=== PATIENT | female | born 1980 | race Caucasian/White ===

== ENCOUNTER → 2017-07-06 | Outpatient (CLI) | payer BC | END | disposition home or self-care (01) | LOC: LABWHC1 12:08 | PROVIDERS: ATTEND Obstetrics & Gynecology | DX: R23.2 Flushing (principal) | CPT/HCPCS: 36415; 82670; 83001; 83002 ==

== ENCOUNTER → 2019-03-04 | Outpatient (CLI) | payer BC ==
--- NOTE | 2019-03-07 08:30 | US ---
EXAMINATION TYPE: US pelvis complete transvag DATE OF EXAM: 03/05/2019 COMPARISON: NONE CLINICAL HISTORY: R10.2 PELVIC PAIN,N83.0 OVARIAN CYST LT. TECHNIQUE: Transabdominal and transvaginal sonographic images of the pelvis were acquired. EXAM MEASUREMENTS: Uterus: Surgically absent cm Endometrial Stripe: Surgically absent cm Right Ovary: 1.8 x 1.1 x 1.2 cm Left Ovary: 4.8 x 4.4 x 4.7 cm 1. Uterus: Surgically absent 2. Endometrium: Surgically absent 3. Right Ovary: Cystic area in the right ovary measures 2.4 x 1.8 x 2.1 cm. 4. Left Ovary: There is a hypoechoic lesion measuring 4.6 x 2.9 x 3.1 cm. This has low level homogen eous internal echoes as demonstrated on the first series image . This may represent a hemorrhagi c cyst or endometrioma. This is avascular. Spectral, color and waveform doppler imaging shows good arterial and venous flow within the ovaries ; there is no evidence for ovarian torsion. 5. Bilateral Adnexa: As described above 6. Posterior cul-de-sac: wnl IMPRESSION: 1. Complex left ovarian lesion measuring 4.6 cm. This may represent an endometrioma or hemorrhagic cy st. Follow-up could be performed in 3 months to ensure resolution. If not resolved endometrioma would be considered more likely. 2. Simple appearing 2.4 cm right ovarian cyst.
== END | disposition home or self-care (01) ==
LOC: RADUSWWP 16:14
PROVIDERS: ATTEND Obstetrics & Gynecology
DX: N83.201 Unspecified ovarian cyst, right side (principal); N83.8 Other noninflammatory disorders of ovary, fallopian tube and broad ligament
CPT/HCPCS: 76830; 76856

== ENCOUNTER → 2019-05-12 | Outpatient (CLI) | payer BC ==
--- NOTE | 2019-05-12 14:01 | US ---
EXAMINATION TYPE: US pelvic complete DATE OF EXAM: 05/12/2019 COMPARISON: 03/04/2019 CLINICAL HISTORY: 38-year-old female N83.0 Ovarian Cyst. Follow up ovarian cyst, intermittent left pe lvic pain, 1, para 1, hysterectomy 2016 TECHNIQUE: Transabdominal sonographic images of the pelvis were acquired. Transvaginal sonographic images were medically necessary to better assess the following anatomy: ovaries Date of LMP: 2015 FINDINGS: EXAM MEASUREMENTS: Uterus: Surgically absent. Right Ovary: not seen Left Ovary: 5.4 x 3.5 x 5.7 cm 1. Uterus: surgically absent 2. Endometrium: surgically absent 3. Right Ovary: not seen 4. Left Ovary: 4.0 x 2.5 x 3.0cm cystic area with internal echoes. There is also a 1.8 x 1.8 x 1.4cm hypoechoic area with echogenic rim, possible corpus luteum. Additional follicular changes present. 5. Bilateral Adnexa: wnl 6. Posterior cul-de-sac: wnl IMPRESSION: 1. Status post hysterectomy. 2. Right ovary could not be visualized. 3. Large volume to the left ovary secondary to a large 4.0 cm cystic lesion as well as additional fol licular change. The dominant lesion previously measured up to 4.6 cm. Additional follow-up in 6-8 wee ks to ensure gradual involution.
== END | disposition home or self-care (01) ==
LOC: RADUSWWP 10:55
PROVIDERS: ATTEND Obstetrics & Gynecology
DX: N83.01 Follicular cyst of right ovary (principal); N83.02 Follicular cyst of left ovary; Z90.710 Acquired absence of both cervix and uterus
CPT/HCPCS: 76830; 76856

== ENCOUNTER → 2019-07-01 | Outpatient (CLI) | payer BC ==
--- NOTE | 2019-07-01 18:22 | US ---
EXAMINATION TYPE: US pelvis complete transvag DATE OF EXAM: 07/01/2019 COMPARISON: Ultrasound 05/12/2019 CLINICAL HISTORY: R10.32 LLQ PAIN,N83.292 OVARIAN CYST. Pelvic pain x 1 week. Hx left ovarian cyst. P artial hysterectomy 3.5 years ago. TECHNIQUE: Transvaginal (TV) and Transabdominal (TA) . Transabdominal sonographic images of the pel vis were acquired. Transvaginal sonographic images were medically necessary to better assess the fol lowing anatomy: ovaries FINDINGS: Uterus: Surgically absent. Right Ovary: 4.4 x 2.1 x 2.4 cm. Anechoic area seen within right ovary or adjacent to right ovary i n right adnexa measurin.4 x 1.1 x 1.3 cm. Right adnexa unremarkable. Left Ovary: 5.4 x 4.5 x 4.3 cm. Anechoic areas seen with largest cyst measurin.4 x 3.8 x 3.7 cm. Pulsed wave Doppler performed due to large anechoic area. Arterial and venous waveforms obtained. Le ft adnexa unremarkable. IMPRESSION: STABLE SONOGRAPHIC APPEARANCE. Further characterization can be obtained using 3 month fol low-up ultrasound or MRI evaluation.
== END | disposition home or self-care (01) ==
LOC: RADUSWWP 16:56
PROVIDERS: ATTEND Family Medicine
DX: N83.292 Other ovarian cyst, left side (principal)
CPT/HCPCS: 76830; 76856; 93976

== ENCOUNTER 2019-10-29 18:21 | Observation (INO) | payer BC ==
[2019-10-29 18:27] VITALS: RESP 18
[2019-10-29] MEDS ORDERED: SODIUM CHLORIDE 0.9% 1,000 ML IV STA (18:56)
[2019-10-29 19:24] LABS: ALT 36 U/L (9-52); AST 42 U/L (14-36); African American GFR (CKD) >90 (>60 ml/min/1.73 sqM); Albumin 4.8 g/dL (3.5-5.0); Alkaline Phosphatase 77 U/L (38-126); Anion Gap 10 mmol/L; Blood Urea Nitrogen 10 mg/dL (7-17); Calcium 9.7 mg/dL (8.4-10.2); Carbon Dioxide 26 mmol/L (22-30); Chloride 105 mmol/L (98-107); Glucose 102 mg/dL (74-99); Magnesium 1.9 mg/dL (1.6-2.3); Non-African American GFR(CKD) >90 (>60 ml/min/1.73 sqM); Potassium 3.9 mmol/L (3.5-5.1); Sodium 141 mmol/L (137-145); Total Bilirubin 1.5 mg/dL (0.2-1.3); Total Protein 7.6 g/dL (6.3-8.2)
[2019-10-29 19:29] LABS: Appearance,Urine Clear (Clear); Bilirubin,Urine Negative (Negative); Blood,Urine Negative (Negative); Color,Urine Light Yellow; Glucose,Urine (UA) Negative (Negative); Ketones,Urine Negative (Negative); Leukocyte Esterase,Urine Negative (Negative); Nitrite,Urine Negative (Negative); Protein,Urine Negative (Negative); Specific Gravity,Urine 1.005 (1.001-1.035); Urobilinogen,Urine <2.0 mg/dL (<2.0)
[2019-10-29 19:36] LABS: INR 0.9 (<1.2); Partial Thromboplastin Time 25.9 sec (22.0-30.0); Prothrombin Time 10.1 sec (9.0-12.0)
[2019-10-29 19:46] LABS: Basophils % (A) 0 %; Eosinophils # (A) 0.1 k/uL (0-0.7); Eosinophils % (A) 1 %; HCT 35.8 % (34.0-46.0); HGB 12.7 gm/dL (11.4-16.0); Lymphocytes # (A) 1.6 k/uL (1.0-4.8); Lymphocytes % (A) 32 %; MCH 30.5 pg (25.0-35.0); MCHC 35.6 g/dL (31.0-37.0); MCV 85.6 fL (80.0-100.0); Mean Platelet Volume 6.8; Monocytes # (A) 0.2 k/uL (0-1.0); Monocytes % (A) 5 %; Neutrophils % (A) 60 %; Platelet Count 206 k/uL (150-450); RBC 4.18 m/uL (3.80-5.40)
--- NOTE | 2019-10-29 21:19 | XR ---
EXAMINATION TYPE: XR chest 2V DATE OF EXAM: 10/29/2019 COMPARISON: NONE HISTORY: Chest pain and tingling in feet. TECHNIQUE: Frontal and lateral views of the chest are obtained. FINDINGS: There is no focal air space opacity, pleural effusion, or pneumothorax seen. The cardiac silhouette size is within normal limits. The osseous structures are intact. Overlying EKG leads are present. IMPRESSION: No acute cardiopulmonary process.
[2019-10-29] MEDS ORDERED: MORPHINE SULFATE 4 MG/ML SYRINGE IV PRN (22:21)
[2019-10-29] MEDS ORDERED: NALOXONE 0.4 MG/ML 1 ML VIAL IV PRN (22:21)
[2019-10-29] MEDS ORDERED: ONDANSETRON 4 MG/2 ML VIAL IVP PRN (22:21)
--- NOTE | 2019-10-29 22:29 | ED ---
Chest Pain HPI - General Chief Complaint: Chest Pain Stated Complaint: High BP Time Seen by Provider: 10/29/19 18:30 Source: patient Mode of arrival: ambulatory Limitations: no limitations - History of Present Illness Initial Comments: 39-year-old female patient presents to the emergency department today for evaluation of chest pain and left lower extremity pain. Patient states that for the last couple of days she's been having a burning pain to the medial aspect of her left foot radiating up into her calf. She denies any injury. Denies any redness or swelling to the area. Patient is also reporting left-sided chest pain and pain below the left axilla that started approximately 2 hours ago. Patient is having associated shortness of breath and nausea with this. Denies any sweats. Denies any history of similar symptoms. She denies history of alcohol, tobacco, or street drug use. Does have a history of hypertension and a family history of cardiac disease in both her mother and father. States her blood pressures have been more elevated recently. She denies any recent travel. Denies history of DVT. Patient denies any recent rash, fever, chills, abdominal pain, vomiting, diarrhea, constipation, back pain, numbness, tingling, dizziness, weakness, hematuria, dysuria, urinary urgency, urinary frequency, headache, visual changes, or any other complaints. - Related Data Home Medications Medication Instructions Recorded Confirmed Methyldopa [Aldomet] 250 mg PO BID 04/22/14 04/22/14 Lisinopril [Zestril] 20 mg PO DAILY 09/13/16 09/13/16 Previous Rx's Medication Instructions Recorded Amoxicillin/Potassium Clav 1 each PO Q12HR #20 tab 04/22/14 [Augmentin 875-125 Tablet] HYDROcodone/APAP 7.5-325MG [Silva 1 each PO Q4H PRN #60 tab 09/13/16 7.5] HYDROcodone/APAP 7.5-325MG [Silva 1 each PO Q4H PRN #62 tab 09/13/16 7.5] Allergies Allergy/AdvReac Type Severity Reaction Status Date / Time No Known Allergies Allergy Verified 10/29/19 18:23 Review of Systems ROS Statement: Those systems with pertinent positive or pertinent negative responses have been documented in the HPI. ROS Other: All systems not noted in ROS Statement are negative. EKG Findings - EKG Comments: EKG Findings:: EKG obtained at 1846 shows normal sinus rhythm. Ventricular rate is 97, MN interval 146, QRS duration 82, QT 362, QTc 459. Past Medical History Past Medical History: Hypertension History of Any Multi-Drug Resistant Organisms: MRSA Date of last positivie culture/infection: 2009 MDRO Source:: face Past Surgical History: Adenoidectomy, Section, Tonsillectomy Past Psychological History: Anxiety Smoking Status: Never smoker Past Alcohol Use History: None Reported Past Drug Use History: None Reported General Exam Limitations: no limitations General appearance: alert, in no apparent distress, other (This is a well- developed, well-nourished adult female patient in no acute distress. Vital signs upon presentation are temperature 97.7F, pulse 107, respirations 18, blood pressure 155/97, pulse ox 100% on room air.) Eye exam: Present: normal appearance, PERRL, EOMI. Absent: scleral icterus, conjunctival injection, periorbital swelling ENT exam: Present: normal exam, normal oropharynx, mucous membranes moist Respiratory exam: Present: normal lung sounds bilaterally. Absent: respiratory distress, wheezes, rales, rhonchi, stridor Cardiovascular Exam: Present: regular rate, normal rhythm, normal heart sounds. Absent: systolic murmur, diastolic murmur, rubs, gallop, clicks GI/Abdominal exam: Present: soft, normal bowel sounds. Absent: distended, tenderness, guarding, rebound, rigid Neurological exam: Present: alert, oriented X3, CN II-XII intact Psychiatric exam: Present: normal affect, normal mood Skin exam: Present: warm, dry, intact, normal color. Absent: rash Course Vital Signs 10/29/19 10/29/19 18:23 18:54 Temperature 97.7 F Pulse Rate 107 H Pulse Rate [ 86 Surveillance Officer ] Respiratory 18 Rate Blood Pressure 155/97 O2 Sat by Pulse 100 Oximetry Chest Pain MDM - MDM RADIOLOGY:Two-view x-ray of the chest is obtained. Report was reviewed in its entirety. Impression by Dr. Corrales shows no acute cardiopulmonary process MDM: 39-year-old female patient presented to the emergency department today for evaluation of burning pain to the left foot and calf. She is also reporting left-sided chest pain with pain beneath her left axilla. Patient states she is also having pain in her back between her shoulder blades. Lung sounds are clear to auscultation with good air movement. There is no swelling, erythema, or tenderness over the calf on the left leg. Pedal and posttibial pulses 2+ and equal bilaterally. Labs reviewed and were unremarkable. Initial troponin was negative. EKG showed normal sinus rhythm. Chest x-ray showed no acute cardiopulmonary process. Patient is a history of hypertension and family history of cardiac disease. Patient did have elevated blood pressure and tachycardia while in the emergency department. For these reasons to be admitted for serial troponins and evaluation by cardiology. Disposition Clinical Impression: Chest pain Disposition: ADMITTED IP TO THIS HOSP Condition: Serious Referrals: Tony Garcia III, MD [Primary Care Provider] - 1-2 days Decision to Admit Reason: Admit from EC Decision Date: 10/29/19 Decision Time: 22:29
--- NOTE | 2019-10-30 11:05 | ECHOF ---
Referral Reason:cp MEASUREMENTS -------- HEIGHT: 157.5 cm WEIGHT: 113.4 kg BP: RVIDd: 2.9 cm (< 3.3) IVSd: 1.3 cm (0.6 - 1.1) LVIDd: 4.0 cm (3.9 - 5.3) LVPWd: 1.3 cm (0.6 - 1.1) IVSs: 1.5 cm LVIDs: 3.2 cm LVPWs: 1.5 cm LA Diam: 3.3 cm (2.7 - 3.8) Ao Diam: 3.0 cm (2.0 - 3.7) AV Cusp: 2.4 cm (1.5 - 2.6) LA Diam: 3.4 cm (2.7 - 3.8) MV EXCURSION: 26.356 mm (> 18.000) MV EF SLOPE: 77 mm/s (70 - 150) EPSS: 0.4 cm MV E Dweayne: 0.74 m/s MV DecT: 107 ms MV A Dewayne: 0.72 m/s MV E/A Ratio: 1.03 FINDINGS -------- Sinus rhythm. This was a technically adequate study. The left ventricular size is normal. There is mild concentric left ventricular hypertrophy. Overa ll left ventricular systolic function is normal with, an EF between 55 - 60 %. The diastolic fillin g pattern is normal for the age of the patient 13.28. The right ventricle is normal in size. The left atrial size is normal. The right atrial size is normal. The aortic valve is trileaflet, and appears structurally normal. No aortic stenosis or regurgitation. Mild mitral annular calcification present. Mild mitral regurgitation is present. Mild tricuspid regurgitation present. Right ventricular systolic pressure is normal at < 35 mmHg. There is no evidence of pulmonary hypertension. There is no pulmonic regurgitation present. The aortic root size is normal. There is no pericardial effusion. CONCLUSIONS -------- 1. Sinus rhythm. 2. This was a technically adequate study. 3. The left ventricular size is normal. 4. There is mild concentric left ventricular hypertrophy. 5. Overall left ventricular systolic function is normal with, an EF between 55 - 60 %. 6. The diastolic filling pattern is normal for the age of the patient 13.28 7. The right ventricle is normal in size. 8. The left atrial size is normal. 9. The right atrial size is normal. 10. The aortic valve is trileaflet, and appears structurally normal. No aortic stenosis or regurgitat ion. 11. Mild mitral annular calcification present. 12. Mild mitral regurgitation is present. 13. Mild tricuspid regurgitation present. 14. Right ventricular systolic pressure is normal at < 35 mmHg. 15. There is no evidence of pulmonary hypertension. 16. There is no pulmonic regurgitation present. 17. The aortic root size is normal. 18. There is no pericardial effusion. SUPERVISOR [employer]: Alba Brown RDCS
[2019-10-30 12:01] VITALS: BP 131/87; PULSE 91; TEMP 98.1
--- NOTE | 2019-10-30 12:46 | ECHOS ---
STRESS ECHOCARDIOGRAM INDICATIONS: Chest pain. MEDICATIONS: Lisinopril, alprazolam, montelukast, budesonide, fexofenadine. BASELINE HEART RATE: 98 BASELINE BLOOD PRESSURE: 131/95 MAXIMUM HEART RATE: 169 MAXIMUM BLOOD PRESSURE: 145/80 85% MPHR: 155 100% MPHR: 182 METS: 7.1 MAXIMUM STAGE REACHED: 2 TOTAL EXERCISE TIME: 6:00 CLINICAL INFORMATION: Baseline EKG shows sinus rhythm, normal axis, normal intervals. Patient exercised on Eugenio protocol for a total of 6 minutes achieving 7 METS, 85% of predicted maximal heart rate without chest pain or diagnostic ST-segment depression. Baseline echo shows normal left ventricular size, wall motion, systolic function. Postexercise there is normal hyperdynamic response of all segments of myocardium noted. CONCLUSION: 1. Average exercise tolerance. 2. Negative stress test by EKG criteria. 3. Negative stress echo. MMJOHNL / IJN: [id number] /
--- NOTE | 2019-10-30 14:58 | P.HPIM ---
History of Present Illness Patient wasn't [id number] female came in with compensative chest pain actually her pain radiates to the left lower extremity. Patient pain is [id number] in severity and sharp in nature nonexertional no associated shortness of breath, lightheadedness or nausea. Denied any diaphoresis not associated with food. Patient is admitted rule out acute coronary syndromes which was ruled out with 3 sets of troponins and EKGs patient underwent stress test which was negative and patient is being discharged today etiology of her pain is not clear. Denies any history of DVT and patient's symptomatology is not consistent with DVT Review of Systems REVIEW OF SYSTEMS: CONSTITUTIONAL: No fever, no malaise, no fatigue. HEENT: No recent visual problems or hearing problems. Denied any sore throat. CARDIOVASCULAR: No orthopnea, PND, no palpitations, no syncope. PULMONARY: No shortness of breath, no cough, no hemoptysis. GASTROINTESTINAL: No diarrhea, no nausea, no vomiting, no abdominal pain. NEUROLOGICAL: No headaches, no weakness, no numbness. HEMATOLOGICAL: Denies any bleeding or petechiae. GENITOURINARY: Denies any burning micturition, frequency, or urgency. MUSCULOSKELETAL/RHEUMATOLOGICAL: Denies any joint pain, swelling, or any muscle pain. ENDOCRINE: Denies any polyuria or polydipsia. The rest of the 14-point review of systems is negative. Past Medical History Past Medical History: Hypertension History of Any Multi-Drug Resistant Organisms: MRSA Date of last positivie culture/infection: 2009 MDRO Source:: face Past Surgical History: Adenoidectomy, Section, Cholecystectomy, Hysterectomy, Tonsillectomy Additional Past Surgical History / Comment(s): partial hysterectomy Past Anesthesia/Blood Transfusion Reactions: No Reported Reaction Smoking Status: Never smoker - Past Family History Father Family Medical History: Fibromyalgia Additional Family Medical History / Comment(s): depression Mother Family Medical History: Coronary Artery Disease (CAD), Hypertension Sister(s) Family Medical History: Hypertension Brother(s) Family Medical History: No Reported History Daughter(s) Family Medical History: No Reported History Medications and Allergies Home Medications Medication Instructions Recorded Confirmed Type Lisinopril [Zestril] 20 mg PO DAILY 09/13/16 10/30/19 History Budesonide [Rhinocort Allergy] 1 spray EA NOSTRIL BID 10/29/19 10/30/19 History Fexofenadine HCl [Oriana Allergy] 180 mg PO DAILY 10/29/19 10/30/19 History ALPRAZolam [Xanax] 0.25 mg PO BID PRN 10/30/19 10/30/19 History Montelukast [Singulair] 10 mg PO DAILY PRN 10/30/19 10/30/19 History Allergies Allergy/AdvReac Type Severity Reaction Status Date / Time No Known Allergies Allergy Verified 10/30/19 00:08 Physical Exam Vitals: Vital Signs Temp Pulse Pulse Pulse Resp BP BP 10/30/19 12:00 98.1 F 91 18 10/30/19 07:40 87 18 10/30/19 07:25 97.7 F 79 18 110/74 10/30/19 04:00 98.2 F 87 18 10/29/19 23:20 98.0 F 83 18 10/29/19 23:16 98.2 F 10/29/19 22:30 84 18 131/88 10/29/19 22:00 82 18 136/88 10/29/19 21:30 87 18 138/85 10/29/19 21:00 94 19 135/90 10/29/19 18:54 86 10/29/19 18:23 97.7 F 107 H 18 155/97 BP Pulse Ox 10/30/19 12:00 131/87 98 10/30/19 07:40 10/30/19 07:25 99 10/30/19 04:00 112/74 96 10/29/19 23:20 137/86 99 10/29/19 23:16 10/29/19 22:30 99 10/29/19 22:00 100 10/29/19 21:30 100 10/29/19 21:00 100 10/29/19 18:54 10/29/19 18:23 100 Intake and Output 10/29/19 10/30/19 10/30/19 22:59 06:59 14:59 Intake Total 1200 Balance 1200 Intake: Oral 1200 Other: Voiding Method Toilet Toilet # Voids 1 2 Weight 124.738 kg 124.738 kg PHYSICAL EXAMINATION: GENERAL: The patient is alert and oriented x3, not in any acute distress. Well developed, well nourished. HEENT: Pupils are round and equally reacting to light. EOMI. No scleral icterus. No conjunctival pallor. Normocephalic, atraumatic. No pharyngeal erythema. No thyromegaly. CARDIOVASCULAR: S1 and S2 present. No murmurs, rubs, or gallops. PULMONARY: Chest is clear to auscultation, no wheezing or crackles. ABDOMEN: Soft, nontender, nondistended, normoactive bowel sounds. No palpable organomegaly. MUSCULOSKELETAL: No joint swelling or deformity. EXTREMITIES: No cyanosis, clubbing, or pedal edema. NEUROLOGICAL: Gross neurological examination did not reveal any focal deficits. SKIN: No rashes. Results CBC & Chem 7: 10/29/19 18:50 10/29/19 18:50 Labs: Abnormal Lab Results - Last 24 Hours (Table) 10/29/19 Range/Units 18:50 Glucose 102 H (74-99) mg/dL Total Bilirubin 1.5 H (0.2-1.3) mg/dL AST 42 H (14-36) U/L Thrombosis Risk Factor Assmnt - Choose All That Apply Any of the Below Risk Factors Present?: Yes Each Factor Represents 1 point: Obesity (BMI >25) Other Risk Factors: No Other congenital or acquired thrombophilia - If yes, enter type in comment: No Thrombosis Risk Factor Assessment Total Risk Factor Score: 1 Thrombosis Risk Factor Assessment Level: Low Risk Assessment and Plan Plan: Chest pain: Rule out a concurrent syndromes, unstable angina underwent stress test which was negative and patient is being discharged today. Etiology of chest pain is not clear -Hypertension Lisinopril will be resumed -Anxiety disorder
--- NOTE | 2019-10-30 15:00 | P.DS ---
Providers Date of admission: 10/29/19 22:24 Attending physician: Jany Santiago Consults: 10/29/19 22:22 Consult Physician Routine Consulting Provider: [facility] Consult Reason/Comments: Chest Pain Do you want consulting provider notified?: Yes Primary care physician: Tony Garcia [facility] Course: Refer to my HPI for further details Patient Condition at Discharge: Serious Plan - Discharge Summary Discharge Rx Participant: No New Discharge Prescriptions: Continue Lisinopril [Zestril] 20 mg PO DAILY Fexofenadine HCl [Oriana Allergy] 180 mg PO DAILY Budesonide [Rhinocort Allergy] 1 spray EA NOSTRIL BID Montelukast [Singulair] 10 mg PO DAILY PRN PRN Reason: Allergy Symptoms ALPRAZolam [Xanax] 0.25 mg PO BID PRN PRN Reason: Anxiety Discharge Medication List Lisinopril [Zestril] 20 mg PO DAILY 09/13/16 [History] Budesonide [Rhinocort Allergy] 1 spray EA NOSTRIL BID 10/29/19 [History] Fexofenadine HCl [Oriana Allergy] 180 mg PO DAILY 10/29/19 [History] ALPRAZolam [Xanax] 0.25 mg PO BID PRN 10/30/19 [History] Montelukast [Singulair] 10 mg PO DAILY PRN 10/30/19 [History] Follow up Appointment(s)/Referral(s): Tony Garcia III, MD [Primary Care Provider] - 3 Days Discharge Disposition: HOME SELF-CARE
--- NOTE | 2019-10-30 16:55 | CONS ---
CONSULTATION CHIEF COMPLAINT: Chest pain. Erma is a 39-year-old lady with history of hypertension who presented to hospital with chest pain. She is under a lot of stress at home. Complains of sharp precordial pain, mild intensity, intermittent, without definite relationship with exertion, without clear-cut relieving or exacerbating factors. There is no history of diaphoresis or shortness of breath. EKG shows sinus rhythm with nonspecific ST-T wave changes. Three sets of cardiac enzymes are negative. D-dimer is normal at 0.4. Patient's chest discomfort seems atypical and it is probably noncardiac in origin. I am going to obtain an echocardiogram on her to evaluate her LV function, rule out any pericardial pathology, assess the aortic root and schedule her for a stress echo to rule out ischemic heart disease. If this is negative, she can be discharged home. PAST MEDICAL HISTORY: Past medical history is significant for hypertension, allergies and sinusitis. MEDICATIONS: Medications include Zestril 20 daily, Rhinocort, Singulair, fexofenadine and Xanax. ALLERGIES: NO KNOWN DRUG ALLERGIES. FAMILY HISTORY: Negative for premature coronary artery disease. SOCIAL HISTORY: Negative for current smoking, ETOH abuse or drug abuse. REVIEW OF SYSTEMS: HEENT is unremarkable. CARDIAC: As described above. RESPIRATORY: As described above. GI: Negative. GENITOURINARY: Negative. ALLERGY: Negative. SKIN: Negative. MUSCULOSKELETAL: Negative. ENDOCRINE: . DERMATOLOGY: Negative. CONSTITUTIONAL: Negative. ONCOLOGICAL: Negative. NUCLEAR PHARMACIST: Negative. Rest of the system review is not relevant. PHYSICAL EXAMINATION: Comfortable at rest. Vital signs are stable. There is no jugular venous distention. Carotid upstroke is normal. There is no bruit. Chest exam reveals good air entry bilaterally. Heart exam reveals first and second heart sounds. No gallop. No murmur. No rub. Abdomen is soft, nontender. Examination of extremities did not reveal any edema. Peripheral pulses are felt. NUCLEAR PHARMACIST exam did not reveal focal neurological deficits. LABS: Labs show a hemoglobin of 12.7, potassium is 3.9, creatinine is 0.6. Three sets of troponins are negative. TSH is 2.4. D-dimer is negative. ASSESSMENT: 1. Precordial chest pain. 2. History of hypertension. PLAN: Patient's chest discomfort is sharp, atypical, probably noncardiac. I will obtain a stress echo to rule out ischemic heart disease. MMODL / IJN: [id number] /
== END 2019-10-30 14:18 | disposition home or self-care (01) ==
LOC: EC 18:21 → 1SOBS 22:24
PROVIDERS: ADMIT Hospitalist; ATTEND Hospitalist
DX: R07.89 Other chest pain (principal); R07.2 Precordial pain; R06.02 Shortness of breath; R11.0 Nausea; M79.672 Pain in left foot; M79.662 Pain in left lower leg; M54.89 Other dorsalgia; R00.0 Tachycardia, unspecified; I10 Essential (primary) hypertension; F41.9 Anxiety disorder, unspecified; J30.2 Other seasonal allergic rhinitis; E66.9 Obesity, unspecified; Z68.36 Body mass index [BMI] 36.0-36.9, adult; Z79.899 Other long term (current) drug therapy; Z86.14 Personal history of Methicillin resistant Staphylococcus aureus infection; Z90.89 Acquired absence of other organs; Z98.890 Other specified postprocedural states; Z90.49 Acquired absence of other specified parts of digestive tract; Z90.710 Acquired absence of both cervix and uterus; Z87.09 Personal history of other diseases of the respiratory system; Z82.49 Family history of ischemic heart disease and other diseases of the circulatory system; Z82.69 Family history of other diseases of the musculoskeletal system and connective tissue; Z81.8 Family history of other mental and behavioral disorders
CPT/HCPCS: 96360; 96361; 99285; 36415; 93005; 93306; 93351; 85379; 80053; 84443; 83690; 83735; 84484 ×2; 85025; 85610; 85730; 81003; 71046; G0378 ×2

== ENCOUNTER → 2020-05-13 | Outpatient (CLI) | payer BC ==
--- NOTE | 2020-05-13 10:23 | US ---
EXAMINATION TYPE: US pelvic complete DATE OF EXAM: 05/13/2020 COMPARISON: Multiple previous, most recent July 01, 2019. Prior CT August 04, 2016 CLINICAL HISTORY: N83.0 Left ovarian cyst. F/U left ovarian cyst, pt denies pain TECHNIQUE: Transabdominal (TA). Transabdominal sonographic images of the pelvis were acquired. EXAM MEASUREMENTS: Right Ovary: 2.7 x 1.9 x 1.3 cm Left Ovary: 6.1 x 7.2 x 3.9 cm 1. Uterus: Surgically absent 2. Endometrium: Surgically absent 3. Right Ovary: wnl 4. Left Ovary: Cyst, increased in size when compared to previous= 4.9 x 3.5 x 6.1 cm 5. Bilateral Adnexa: wnl 6. Posterior cul-de-sac: wnl Increase in size of left ovary predominantly due to increased size and thin-walled cyst now somewhat elongated in appearance. IMPRESSION: Benign slightly elongated 6.1 cm thin-walled left ovarian cyst increased in size from mos t recent ultrasound. Follow up either in 2-6 months for resolution/re-characterization or in 6-12 mon ths for growth rate assessment advised.
== END | disposition home or self-care (01) ==
LOC: RADUSWWP 09:36
PROVIDERS: ATTEND Obstetrics & Gynecology
DX: N83.202 Unspecified ovarian cyst, left side (principal)
CPT/HCPCS: 76856

== ENCOUNTER 2020-08-23 23:48 | Emergency (ER) | payer BC ==
[2020-08-23 23:55] VITALS: RESP 18; TEMP 98.4
[2020-08-24 00:18] LABS: Appearance,Urine Clear (Clear); Bilirubin,Urine Negative (Negative); Blood,Urine Negative (Negative); Color,Urine Light Yellow; Glucose,Urine (UA) Negative (Negative); Ketones,Urine Negative (Negative); Leukocyte Esterase,Urine Negative (Negative); Nitrite,Urine Negative (Negative); Protein,Urine Negative (Negative); Specific Gravity,Urine 1.009 (1.001-1.035); Urobilinogen,Urine <2.0 mg/dL (<2.0)
[2020-08-24] MEDS ORDERED: KETOROLAC 15 MG/ML 1 ML VIAL IVP STA (02:18)
[2020-08-24] MEDS ORDERED: SODIUM CHLORIDE 0.9% 1,000 ML IV ONE (02:18)
[2020-08-24] MEDS ORDERED: ONDANSETRON 4 MG/2 ML VIAL IVP STA (02:18)
--- NOTE | 2020-08-24 02:27 | ED ---
Abdominal Pain HPI - General Source: patient Mode of arrival: ambulatory Limitations: no limitations <Nahomy Holman - Last Filed: 08/24/20 02:25> <Jimena Arcos - Last Filed: 08/24/20 04:47> - General Chief Complaint: Abdominal Pain Stated Complaint: Abdominal Pain, Jaw Pain Time Seen by Provider: 08/24/20 01:50 - History of Present Illness Initial Comments: 40-year-old female patient presents to the emergency department today for evaluation of left lower quadrant abdominal pain. Patient states she has been having pain on and off since Sunday. States the pain returned today while she was working and became significantly worse. States the pain is radiating through to her left lower back. States that she does have a history of ovarian cyst, states it was measuring 6 cm on the left side. States she is scheduled to have an ultrasound on Sunday to further evaluate the cyst and discussed removal with her doctor chiropractic. Patient states that this pain is worse than her usual discomfort so she presented here for further evaluation. States she has been having intermittent episodes of nausea today but has had no vomiting. Denies any constipation or diarrhea. Denies any abnormal vaginal discharge. She did has had partial hysterectomy due to recurrent uterine fibroids. She denies any hematuria, dysuria, urinary urgency, urinary frequency. Denies fevers but states she has been having hot flashes. She is also reporting headache to the left side. States this is unusual for her. She has taken motrin without relief. Denies head injury. Patient denies any recent rash, cough, shortness of breath, chest pain, numbness, tingling, dizziness, weakness, visual changes, or any other complaints. (Nahomy Holman) - Related Data Home Medications Medication Instructions Recorded Confirmed lisinopriL [Zestril] 20 mg PO DAILY 09/13/16 10/30/19 Budesonide [Rhinocort Allergy] 1 spray EA NOSTRIL BID 10/29/19 10/30/19 Fexofenadine HCl [Oriana Allergy] 180 mg PO DAILY 10/29/19 10/30/19 ALPRAZolam [Xanax] 0.25 mg PO BID PRN 10/30/19 10/30/19 Montelukast [Singulair] 10 mg PO DAILY PRN 10/30/19 10/30/19 Allergies Allergy/AdvReac Type Severity Reaction Status Date / Time No Known Allergies Allergy Verified 10/30/19 00:08 Review of Systems ROS Other: All systems not noted in ROS Statement are negative. <Nahomy Holman - Last Filed: 08/24/20 02:25> ROS Other: All systems not noted in ROS Statement are negative. <Jimena Arcos - Last Filed: 08/24/20 04:47> ROS Statement: Those systems with pertinent positive or pertinent negative responses have been documented in the HPI. Past Medical History Past Medical History: Hypertension History of Any Multi-Drug Resistant Organisms: MRSA Date of last positivie culture/infection: 2009 MDRO Source:: face Past Surgical History: Adenoidectomy, Section, Cholecystectomy, Hysterectomy, Tonsillectomy Additional Past Surgical History / Comment(s): partial hysterectomy Past Anesthesia/Blood Transfusion Reactions: No Reported Reaction Past Psychological History: Anxiety Smoking Status: Never smoker Past Alcohol Use History: Rare Past Drug Use History: None Reported - Past Family History Father Family Medical History: Fibromyalgia Additional Family Medical History / Comment(s): depression Mother Family Medical History: Coronary Artery Disease (CAD), Hypertension Sister(s) Family Medical History: Hypertension Brother(s) Family Medical History: No Reported History Daughter(s) Family Medical History: No Reported History <Nahomy Holman - Last Filed: 08/24/20 02:25> General Exam Limitations: no limitations General appearance: alert, in no apparent distress, other (This is a well- developed, well-nourished adult female patient in no acute distress. Vital signs upon presentation are temperature 98.4F, pulse 90, respirations 18, blood pressure 147/97, pulse ox 100% on room air.) Eye exam: Present: normal appearance, PERRL, EOMI. Absent: scleral icterus, conjunctival injection, periorbital swelling ENT exam: Present: normal exam, normal oropharynx, mucous membranes moist Respiratory exam: Present: normal lung sounds bilaterally. Absent: respiratory distress, wheezes, rales, rhonchi, stridor Cardiovascular Exam: Present: regular rate, normal rhythm, normal heart sounds. Absent: systolic murmur, diastolic murmur, rubs, gallop, clicks GI/Abdominal exam: Present: soft, tenderness (Left lower quadrant), normal bowel sounds. Absent: distended, guarding, rebound, rigid Neurological exam: Present: alert, oriented X3, CN II-XII intact Psychiatric exam: Present: normal affect, normal mood Skin exam: Present: warm, dry, intact, normal color. Absent: rash <Nahomy Holman - Last Filed: 08/24/20 02:25> Course Vital Signs 08/23/20 23:51 Temperature 98.4 F Pulse Rate 90 Respiratory 18 Rate Blood Pressure 147/97 O2 Sat by Pulse 100 Oximetry Medical Decision Making - Lab Data Result diagrams: 08/24/20 02:45 08/24/20 02:42 <Jimena Arcos - Last Filed: 08/24/20 04:47> - Medical Decision Making Care was signed out to me by Nahomy Holman. Patient is a 40-year-old female with a known left ovarian cyst which is being followed by Dr. Sparrow. Patient presented today with worsening pain. At the time of sign out computed tomography scan of the abdomen was pending. Computed tomography scan reveals a atypical mass versus septated cyst originating from the left ovary. Size not significantly changed from previous ultrasound. I entered the patient's room to discuss her findings, she was sleeping comfortably. I woke the patient reports her pain has now resolved. Advised her to CT findings, I advised her of the need to follow with Dr. Sparrow for likely surgical planning. Patient expressed understanding of this. All questions pertaining care were answered to the best of my ability the patient was discharged home in stable condition. (Jimena Arcos) - Lab Data Lab Results 08/24/20 08/24/20 08/24/20 Range/Units 00:09 02:42 02:45 WBC 6.7 (3.8-10.6) k/uL RBC 4.65 (3.80-5.40) m/uL Hgb 13.7 (11.4-16.0) gm/dL Hct 40.6 (34.0-46.0) % MCV 87.2 (80.0-100.0) fL MCH 29.4 (25.0-35.0) pg MCHC 33.7 (31.0-37.0) g/dL RDW 12.9 (11.5-15.5) % Plt Count 221 (150-450) k/uL Neutrophils % 56 % Lymphocytes % 35 % Monocytes % 6 % Eosinophils % 2 % Basophils % 0 % Neutrophils # 3.7 (1.3-7.7) k/uL Lymphocytes # 2.3 (1.0-4.8) k/uL Monocytes # 0.4 (0-1.0) k/uL Eosinophils # 0.1 (0-0.7) k/uL Basophils # 0.0 (0-0.2) k/uL Sodium 136 L (137-145) mmol/L Potassium 4.0 (3.5-5.1) mmol/L Chloride 106 (98-107) mmol/L Carbon Dioxide 23 (22-30) mmol/L Anion Gap 7 mmol/L BUN 10 (7-17) mg/dL Creatinine 0.64 (0.52-1.04) mg/dL Est GFR (CKD-EPI)AfAm >90 (>60 ml/min/1.73 sqM) Est GFR (CKD-EPI)NonAf >90 (>60 ml/min/1.73 sqM) Glucose 105 H (74-99) mg/dL Calcium 9.3 (8.4-10.2) mg/dL Total Bilirubin 1.1 (0.2-1.3) mg/dL AST 31 (14-36) U/L ALT 31 (4-34) U/L Alkaline Phosphatase 58 (38-126) U/L Total Protein 7.0 (6.3-8.2) g/dL Albumin 4.4 (3.5-5.0) g/dL Lipase 123 (23-300) U/L Urine Color Light Yellow Urine Appearance Clear (Clear) Urine pH 6.0 (5.0-8.0) Ur Specific [place] 1.009 (1.001-1.035) Urine Protein Negative (Negative) Urine Glucose (UA) Negative (Negative) Urine Ketones Negative (Negative) Urine Blood Negative (Negative) Urine Nitrite Negative (Negative) Urine Bilirubin Negative (Negative) Urine Urobilinogen <2.0 (<2.0) mg/dL Ur Leukocyte Esterase Negative (Negative) Disposition <Nahomy Holman - Last Filed: 08/24/20 02:25> Is patient prescribed a controlled substance at d/c from ED?: No <Iqra Arcosica P - Last Filed: 08/24/20 04:47> Clinical Impression: Ovarian mass, left Disposition: HOME SELF-CARE Condition: Stable Additional Instructions: as we discussed there is a large abnormal cystic structure in her left ovary which has been seen before, contact Dr. Sharma tomorrow for follow-up Return to the ER for any worsening pain or development of new or concerning symptoms Referrals: Yissel Negron MD [Primary Care Provider] - 1-2 days
[2020-08-24 03:21] LABS: Basophils % (A) 0 %; Eosinophils # (A) 0.1 k/uL (0-0.7); Eosinophils % (A) 2 %; HCT 40.6 % (34.0-46.0); HGB 13.7 gm/dL (11.4-16.0); Lymphocytes # (A) 2.3 k/uL (1.0-4.8); Lymphocytes % (A) 35 %; MCH 29.4 pg (25.0-35.0); MCHC 33.7 g/dL (31.0-37.0); MCV 87.2 fL (80.0-100.0); Mean Platelet Volume 6.9; Monocytes # (A) 0.4 k/uL (0-1.0); Monocytes % (A) 6 %; Neutrophils # (A) 3.7 k/uL (1.3-7.7); Neutrophils % (A) 56 %; Platelet Count 221 k/uL (150-450); RBC 4.65 m/uL (3.80-5.40); RDW 12.9 % (11.5-15.5); WBC 6.7 k/uL (3.8-10.6)
[2020-08-24 03:31] LABS: ALT 31 U/L (4-34); AST 31 U/L (14-36); African American GFR (CKD) >90 (>60 ml/min/1.73 sqM); Albumin 4.4 g/dL (3.5-5.0); Alkaline Phosphatase 58 U/L (38-126); Anion Gap 7 mmol/L; Blood Urea Nitrogen 10 mg/dL (7-17); Calcium 9.3 mg/dL (8.4-10.2); Carbon Dioxide 23 mmol/L (22-30); Chloride 106 mmol/L (98-107); Glucose 105 mg/dL (74-99); Lipase 123 U/L (23-300); Non-African American GFR(CKD) >90 (>60 ml/min/1.73 sqM); Sodium 136 mmol/L (137-145); Total Bilirubin 1.1 mg/dL (0.2-1.3)
--- NOTE | 2020-08-24 03:47 | CT ---
EXAMINATION TYPE: CT abdomen pelvis w con DATE OF EXAM: 08/24/2020 COMPARISON: 08/04/2016 HISTORY: LLQ ABD PAIN CT DLP: 2070.70 mGycm Automated exposure control for dose reduction was used. CONTRAST: Performed with IV Contrast, patient injected with 100 mL of Isovue 300. Lung bases are clear. There is no pleural effusion. Heart size is normal. There is no pericardial eff usion. There is some fatty infiltration of the liver. Spleen is large and measures 14.5 cm. There is no panc reatic mass. Stomach is intact. Gallbladder is absent. The bile ducts are not dilated. There is no adrenal mass. Kidneys show satisfactory contrast opacification. There is no hydronephrosi s. Delayed images show no sign of obstruction. Ureters are not dilated. There is no retroperitoneal a denopathy. Bladder distends smoothly. There is no inguinal hernia. There is hysterectomy. There is 5.7 x 6.5 cm septated cystic mass in the pelvis on the left side that is probably left ovary. The appendix appears normal. There is small umbilical hernia that contains fat. There is no mesenteric edema. There is no ascites. There is no sign of free air in the abdomen. Lumbar vertebra have normal alignment. Disc spaces are normal. Posterior elements are intact. Bony pe lvis is intact. Hip joints appear normal. IMPRESSION: Large septated left ovarian cyst is a change compared to old CT scan. Normal appendix. Mild splenomegaly. Mild fatty infiltration of the liver.
[2020-08-24 05:03] VITALS: BP 135/89; PULSE 79
== END 2020-08-24 04:45 | disposition home or self-care (01) ==
LOC: EC 23:48
DX: N83.202 Unspecified ovarian cyst, left side (principal); I10 Essential (primary) hypertension; F41.9 Anxiety disorder, unspecified; Z79.899 Other long term (current) drug therapy; Z79.51 Long term (current) use of inhaled steroids; Z90.710 Acquired absence of both cervix and uterus; Z90.49 Acquired absence of other specified parts of digestive tract
CPT/HCPCS: 36415; 80053; 83690; 85025; 81003; 74177; 99284; 96374; 96375; 96361; J2405; J1885; Q9967

== ENCOUNTER → 2020-08-30 | Outpatient (CLI) | payer BC ==
--- NOTE | 2020-08-30 16:52 | US ---
EXAMINATION TYPE: US pelvic complete DATE OF EXAM: 08/30/2020 COMPARISON: US pelvis May 13, 2020 CLINICAL HISTORY: N83.0 OVARIAN CYST. TECHNIQUE: Transabdominal (TA). Transabdominal sonographic images of the pelvis were acquired. Date of LMP: EXAM MEASUREMENTS: Right Ovary: 2.4 x 1.4 x 1.9 cm Left Ovary: 7.1 x 4.6 x 7.5 cm 1. Uterus: Surgically absent 2. Endometrium: Surgically absent 3. Right Ovary: wnl 4. Left Ovary: Cyst with septation, has increased in size when compared to previous= 5.5 x 3.1 x 6.5 cm/ Previous size= 4.9 x 3.5 x 6.1 cm 5. Bilateral Adnexa: wnl 6. Posterior cul-de-sac: wnl Uterus is surgically absent. Persistent 6.5 cm oval thin-walled cyst with thin septa in the left ovar y. No suspicious solid nodularity or change from prior. IMPRESSION: As above. Elongated thin-walled cyst or cystic lesion slightly more prominent from prior studies. No suspicious vascularity or solid nodularity noted.
== END | disposition home or self-care (01) ==
LOC: RADUSWWP 16:16
PROVIDERS: ATTEND Obstetrics & Gynecology
DX: N83.292 Other ovarian cyst, left side (principal); Z90.710 Acquired absence of both cervix and uterus
CPT/HCPCS: 76856

== ENCOUNTER 2021-01-17 23:44 | Emergency (ER) | payer BC ==
[2021-01-17 23:49] VITALS: RESP 18; TEMP 97.4
[2021-01-18 00:57] LABS: Basophils % (A) 1 %; Eosinophils # (A) 0.1 k/uL (0-0.7); Eosinophils % (A) 2 %; HCT 40.1 % (34.0-46.0); HGB 13.9 gm/dL (11.4-16.0); Lymphocytes # (A) 2.7 k/uL (1.0-4.8); Lymphocytes % (A) 38 %; MCH 30.3 pg (25.0-35.0); MCHC 34.7 g/dL (31.0-37.0); MCV 87.3 fL (80.0-100.0); Mean Platelet Volume 7.1; Monocytes # (A) 0.4 k/uL (0-1.0); Monocytes % (A) 6 %; Neutrophils # (A) 3.8 k/uL (1.3-7.7); Neutrophils % (A) 53 %; Platelet Count 233 k/uL (150-450); WBC 7.2 k/uL (3.8-10.6)
--- NOTE | 2021-01-18 00:59 | XR ---
EXAMINATION TYPE: XR chest 2V DATE OF EXAM: 01/18/2021 COMPARISON: 10/29/2019 HISTORY: Chest pain TECHNIQUE: FINDINGS: Heart and mediastinum are normal. Lungs are clear. Diaphragm is normal. Bony thorax appears normal. IMPRESSION: Normal chest. No change.
[2021-01-18 01:05] LABS: INR 0.9 (<1.2)
[2021-01-18 01:06] LABS: Partial Thromboplastin Time 24.8 sec (22.0-30.0); Prothrombin Time 10.1 sec (9.0-12.0)
--- NOTE | 2021-01-18 01:09 | ED ---
Chest Pain HPI - General Chief Complaint: Chest Pain Stated Complaint: Chest Pain Time Seen by Provider: 01/18/21 00:52 Source: patient Mode of arrival: ambulatory Limitations: no limitations - History of Present Illness Initial Comments: This patient is a 40-year-old woman who presents to be evaluated for substernal chest pain that she states started earlier this week but then became more prominent today. She describes as a heavy feeling. There has been a little bit of nausea today but no vomiting. No dyspnea, diaphoresis, palpitations or syncope. MD Complaint: chest pain -: days(s) Onset: during rest Pain Location: substernal Pain Radiation: none Severity: mild Quality: heaviness Consistency: constant Improves With: nothing Worsens With: nothing Anginal Symptoms: nausea Treatments Prior to Arrival: none - Related Data Home Medications Medication Instructions Recorded Confirmed lisinopriL [Zestril] 20 mg PO DAILY 09/13/16 10/30/19 Budesonide [Rhinocort Allergy] 1 spray EA NOSTRIL BID 10/29/19 10/30/19 Fexofenadine HCl [Oriana Allergy] 180 mg PO DAILY 10/29/19 10/30/19 ALPRAZolam [Xanax] 0.25 mg PO BID PRN 10/30/19 10/30/19 Montelukast [Singulair] 10 mg PO DAILY PRN 10/30/19 10/30/19 Allergies Allergy/AdvReac Type Severity Reaction Status Date / Time No Known Allergies Allergy Verified 01/17/21 23:49 Review of Systems ROS Statement: Those systems with pertinent positive or pertinent negative responses have been documented in the HPI. ROS Other: All systems not noted in ROS Statement are negative. Constitutional: Denies: fever, chills Respiratory: Denies: cough, dyspnea, wheezes, hemoptysis Cardiovascular: Reports: as per HPI, chest pain. Denies: palpitations, orthopnea, edema, syncope Gastrointestinal: Reports: nausea. Denies: abdominal pain, vomiting, diarrhea, melena, hematochezia Genitourinary: Denies: dysuria, frequency, hematuria Musculoskeletal: Denies: back pain Skin: Denies: rash Neurological: Denies: headache, weakness EKG Findings - EKG Results: EKG: interpreted by ERMD, sinus rhythm, normal axis, normal QRS EKG shows: tachycardia (Rate 102 BPM) - Blocks, Marine, Hypertrophy, ST Abn: Repolarization changes or abnormalities: nonspecific abnormality, ST segment, and/or T wave Past Medical History Past Medical History: Hypertension History of Any Multi-Drug Resistant Organisms: MRSA Date of last positivie culture/infection: 2009 MDRO Source:: face Past Surgical History: Adenoidectomy, Section, Cholecystectomy, Hysterectomy, Tonsillectomy Additional Past Surgical History / Comment(s): partial hysterectomy Past Anesthesia/Blood Transfusion Reactions: No Reported Reaction Past Psychological History: Anxiety Smoking Status: Never smoker Past Alcohol Use History: Rare Past Drug Use History: None Reported - Past Family History Father Family Medical History: Fibromyalgia Additional Family Medical History / Comment(s): depression Mother Family Medical History: Coronary Artery Disease (CAD), Hypertension Sister(s) Family Medical History: Hypertension Brother(s) Family Medical History: No Reported History Daughter(s) Family Medical History: No Reported History General Exam Limitations: no limitations General appearance: alert, in no apparent distress Head exam: Present: atraumatic, normocephalic Eye exam: Present: normal appearance. Absent: scleral icterus, conjunctival injection Neck exam: Present: normal inspection Respiratory exam: Present: normal lung sounds bilaterally. Absent: respiratory distress, wheezes, rales, rhonchi, stridor Cardiovascular Exam: Present: regular rate, normal rhythm, normal heart sounds. Absent: systolic murmur, diastolic murmur, rubs, gallop GI/Abdominal exam: Present: soft. Absent: distended, tenderness, guarding, rebound, rigid, mass Extremities exam: Present: normal inspection, normal capillary refill. Absent: pedal edema, calf tenderness Back exam: Present: normal inspection. Absent: CVA tenderness (R), CVA tenderness (L) Neurological exam: Present: alert Skin exam: Present: warm, dry, intact, normal color. Absent: rash Course Vital Signs 01/17/21 01/18/21 23:47 00:49 Temperature 97.4 F L Pulse Rate 100 80 Respiratory 18 18 Rate Blood Pressure 172/94 132/90 O2 Sat by Pulse 100 Oximetry Disposition Clinical Impression: Chest pain Disposition: HOME SELF-CARE Condition: Good Instructions (If sedation given, give patient instructions): Chest Pain (ED) Is patient prescribed a controlled substance at d/c from ED?: No Referrals: Yissel Negron MD [Primary Care Provider] - 1-2 days
[2021-01-18 01:19] LABS: ALT 28 U/L (4-34); AST 25 U/L (14-36); African American GFR (CKD) >90 (>60 ml/min/1.73 sqM); Albumin 4.6 g/dL (3.5-5.0); Alkaline Phosphatase 56 U/L (38-126); Anion Gap 9 mmol/L; Blood Urea Nitrogen 11 mg/dL (7-17); Calcium 9.5 mg/dL (8.4-10.2); Carbon Dioxide 26 mmol/L (22-30); Chloride 102 mmol/L (98-107); Glucose 96 mg/dL (74-99); Magnesium 1.8 mg/dL (1.6-2.3); Non-African American GFR(CKD) >90 (>60 ml/min/1.73 sqM); Potassium 3.8 mmol/L (3.5-5.1); Sodium 137 mmol/L (137-145); Total Protein 7.2 g/dL (6.3-8.2)
[2021-01-18] MEDS ORDERED: MAG HYDROX/AL HYDROX/SIMETH 30 ML, HYOSCYAMINE ELIXIR 10 ML, LIDOCAINE VISCOUS 2% 10 ML PO STA ×3 (01:59)
[2021-01-18] MEDS ORDERED: KETOROLAC 15 MG/ML 1 ML VIAL IVP STA (01:59)
[2021-01-18 02:22] VITALS: BP 121/84; PULSE 78
== END 2021-01-18 02:22 | disposition home or self-care (01) ==
LOC: EC 23:44
DX: R07.9 Chest pain, unspecified (principal); F41.9 Anxiety disorder, unspecified; I10 Essential (primary) hypertension; Z79.899 Other long term (current) drug therapy; Z82.49 Family history of ischemic heart disease and other diseases of the circulatory system
CPT/HCPCS: 36415; 93005; 85379; 80053; 83735; 84484; 85025; 85610; 85730; 71046; 99285; 96374; J1885

== ENCOUNTER → 2021-06-03 | Outpatient (CLI) | payer BC | END | disposition home or self-care (01) ==

== ENCOUNTER → 2021-08-23 | Outpatient (CLI) | payer BC ==
--- NOTE | 2021-08-25 11:25 | MM ---
Reason for exam: screening (asymptomatic). Last mammogram was performed 4 years and 9 months ago. Physical Findings: A clinical breast exam by your physician is recommended on an annual basis and results should be correlated with mammographic findings. MG Screening Mammo w CAD Bilateral CC and MLO view(s) were taken. Prior study comparison: November 23, 2016, bilateral MG screening mammo w CAD. The breast tissue is heterogeneously dense. This may lower the sensitivity of mammography. Focal asymmetry linear upper inner quadrant left breast. This finding is changed when compared with previous exams. ASSESSMENT: Incomplete: need additional imaging evaluation, BI-RAD 0 RECOMMENDATION: Special view mammogram of the left breast. If lesion persists on supplemental views, image directed ultrasound is recommended. [facility] will attempt to contact patient to return for supplemental views and ultrasound if indicated.
== END | disposition home or self-care (01) ==
LOC: RADMAMWWP 16:06
PROVIDERS: ATTEND Obstetrics & Gynecology
DX: Z12.31 Encounter for screening mammogram for malignant neoplasm of breast (principal)
CPT/HCPCS: 77067

== ENCOUNTER → 2021-09-02 | Outpatient (CLI) | payer BC ==
--- NOTE | 2021-09-06 09:07 | MM ---
Reason for exam: additional evaluation requested from abnormal screening. Last mammogram was performed less than 1 month ago. Physical Findings: Nurse did not find any significant physical abnormalities on exam. MG Work Up Mamm w CAD LT Spot compression CC, spot compression MLO, and LM view(s) were taken of the left breast. Prior study comparison: August 23, 2021, bilateral MG screening mammo w CAD. November 23, 2016, bilateral MG screening mammo w CAD. The breast tissue is heterogeneously dense. This may lower the sensitivity of mammography. These results were verbally communicated with the patient and result sheet given to the patient on 09/02/21. ASSESSMENT: Probably benign, BI-RAD 3 RECOMMENDATION: Follow-up diagnostic mammogram of the left breast in 6 months.
== END | disposition home or self-care (01) ==
LOC: RADMAMWWP 14:58
PROVIDERS: ATTEND Obstetrics & Gynecology
DX: R92.8 Other abnormal and inconclusive findings on diagnostic imaging of breast (principal)
CPT/HCPCS: 77065

== ENCOUNTER → 2022-11-24 | Outpatient (CLI) | payer BC ==
[2022-11-24 21:06] LABS: Gliadin AB IgA, Deaminated NEGATIVE (NEGATIVE); Gliadin AB IgA, Unit <0.2 U/mL
== END | disposition home or self-care (01) ==
LOC: LABWHC1 10:39
PROVIDERS: ATTEND Allergy & Immunology
DX: K21.9 Gastro-esophageal reflux disease without esophagitis (principal); K52.9 Noninfective gastroenteritis and colitis, unspecified
CPT/HCPCS: 36415; 82784; 83516; 86255

== ENCOUNTER → 2024-07-07 | Outpatient (CLI) | payer BC | END | disposition home or self-care (01) | LOC: LABPRL 13:30 | PROVIDERS: ATTEND Family Medicine | DX: Z13.21 Encounter for screening for nutritional disorder (principal); Z13.220 Encounter for screening for lipoid disorders; Z13.228 Encounter for screening for other metabolic disorders; Z13.29 Encounter for screening for other suspected endocrine disorder; I10 Essential (primary) hypertension; E53.8 Deficiency of other specified B group vitamins | CPT/HCPCS: 80053; 80061; 82306; 82607; 84443; 85025; 86304 ==

== ENCOUNTER → 2024-07-25 | Outpatient (CLI) | payer BC ==
--- NOTE | 2024-07-25 17:25 | US ---
EXAMINATION TYPE: US pelvic complete DATE OF EXAM: 07/25/2024 COMPARISON: 06/03/21 CLINICAL INDICATION: Female, 44 years old with history of N83.202 UNSPECIFIED OVARIAN CYST, LEFT SIDE ; Hx of left ovarian cyst, on and off dull pain. Partial hysterectomy TECHNIQUE: . Transabdominal sonographic images of the pelvis were acquired. Date of LMP: hysterectomy EXAM MEASUREMENTS: Uterus: Surgically absent Right Ovary: 3.3 x 2.3 x 1.8 cm Left Ovary: 9.6 x 8.3 x 6.0 cm 1. Uterus: Surgically absent 3. Right Ovary: wnl 4. Left Ovary: large cystic area measuring 7.9 x 5.7 x 4.9cm 5. Bilateral Adnexa: wnl 6. Posterior cul-de-sac: wnl IMPRESSION: 1. No evidence for acute process. 2. Left ovarian cystic structure measuring up to 7.9 cm. This predisposes the patient to ovarian tor silvia. Cyst has a relatively simple appearance.
== END | disposition home or self-care (01) ==
LOC: RADUSWWP 15:22
PROVIDERS: ATTEND Family Medicine
DX: N83.202 Unspecified ovarian cyst, left side (principal); N83.512 Torsion of left ovary and ovarian pedicle
CPT/HCPCS: 76856

== ENCOUNTER → 2024-10-07 | Outpatient (CLI) | payer BC ==
[2024-10-08 03:42] LABS: Basophils # (A) 0.03 X 10*3/uL (0.00-0.10); Basophils % (A) 0.5 %; Eosinophils # (A) 0.13 X 10*3/uL (0.04-0.35); Eosinophils % (A) 2.1 %; HCT 35.5 % (37.2-46.3); HGB 12.2 g/dL (12.0-15.0); Lymphocytes # (A) 2.38 X 10*3/uL (0.90-5.00); Lymphocytes % (A) 37.7 %; MCH 30.7 pg (27.0-32.0); MCHC 34.4 g/dL (32.0-37.0); MCV 89.4 FL (80.0-97.0); Mean Platelet Volume 9.7 FL (9.5-12.2); Monocytes % (A) 7.9 %; NRBC Per 100 WBC 0 X 10*3/uL (0.00-0.01); Neutrophils # (A) 3.26 X 10*3/uL (1.80-7.70); Neutrophils % (A) 51.5 %; Platelet Count 201 X 10*3/uL (140-440); RBC 3.97 X 10*6/uL (4.10-5.20); RDW 12.6 % (11.5-14.5); WBC 6.32 X 10*3/uL (4.50-10.00)
== END | disposition home or self-care (01) ==
LOC: LABWHC1 15:59
PROVIDERS: ATTEND Obstetrics & Gynecology
DX: Z01.812 Encounter for preprocedural laboratory examination (principal)
CPT/HCPCS: 85025

== ENCOUNTER 2024-10-13 05:59 | Day surgery (SDC) | payer BC ==
[~2024-10-13 05:59] MED LIST: Pre Op ABX Message 1 EACH MISC MISCELLANE ONE
[2024-10-13] MEDS ORDERED: MIDAZOLAM 2 MG/2 ML VIAL IV PRN (06:02)
[2024-10-13] MEDS ORDERED: HYDROmorphone 0.5 MG/0.5 ML SYRINGE IVP PRN (06:02)
[2024-10-13] MEDS ORDERED: LIDOCAINE 1% (10MG/ML) FOR IV START INTRADERMA PRN (06:02)
[2024-10-13] MEDS: IV FLUID CONTINUATION 1,000 ML IV ONE (06:25)
[2024-10-13] MEDS: LACTATED RINGERS 1,000 ML IV SCH (06:47)
[2024-10-13 06:52] LABS: Glucose,Whole Blood 97 mg/dL (70-110)
[2024-10-13] MEDS: ONDANSETRON 4 MG/2 ML VIAL IVP ONE (06:54)
[2024-10-13] MEDS: DEXAMETHASONE SOD PHOSPHATE 4 MG/ML 1 ML VIAL IV ONE (06:54)
[2024-10-13 07:08] LABS: African American GFR (CKD) >90 (>60 ml/min/1.73 sqM); Anion Gap 6 mmol/L; Blood Urea Nitrogen 9 mg/dL (7-17); Calcium 8.7 mg/dL (8.4-10.2); Carbon Dioxide 23 mmol/L (22-30); Chloride 108 mmol/L (98-107); Glucose 96 mg/dL (74-99); Non-African American GFR(CKD) >90 (>60 ml/min/1.73 sqM); Sodium 137 mmol/L (137-145)
--- NOTE | 2024-10-13 07:24 | P.HPOB ---
History of Present Illness H&P Date: 10/13/24 Chief Complaint: left ovarian cyst 44 year old with large left ovarian cyst presents for laparoscopic removal of ovarian cyst with possible oopherectomy using da patricia. Review of Systems All systems: negative Constitutional: Denies chills, Denies fever Eyes: denies blurred vision, denies pain Ears, nose, mouth and throat: Denies headache, Denies sore throat Cardiovascular: Denies chest pain, Denies shortness of breath Respiratory: Denies cough Gastrointestinal: Denies abdominal pain, Denies diarrhea, Denies nausea, Denies vomiting Genitourinary: Denies dysuria, Denies hematuria Musculoskeletal: Denies myalgias Integumentary: Denies pruritus, Denies rash Neurological: Denies numbness, Denies weakness Psychiatric: Denies anxiety, Denies depression Endocrine: Denies fatigue, Denies weight change Past Medical History Past Medical History: Hypertension Additional Past Medical History / Comment(s): allergies, recent sinus infection treated abx and steroids - complete. mild congestion remains. Cyst on left ovary History of Any Multi-Drug Resistant Organisms: MRSA Date of last positivie culture/infection: 2009 MDRO Source:: face Past Surgical History: Adenoidectomy, Section, Cholecystectomy, Hysterectomy, Tonsillectomy Additional Past Surgical History / Comment(s): partial hysterectomy Past Anesthesia/Blood Transfusion Reactions: No Reported Reaction Additional Past Anesthesia/Blood Transfusion Reaction / Comment(s): N/V when young, no issues recently Past Psychological History: No Psychological Hx Reported Smoking Status: Never smoker Past Alcohol Use History: None Reported Past Drug Use History: None Reported - Past Family History Father Family Medical History: Fibromyalgia Additional Family Medical History / Comment(s): depression, pre diabetic Mother Family Medical History: Coronary Artery Disease (CAD), Diabetes Mellitus, Hypertension Sister(s) Family Medical History: Hypertension Brother(s) Family Medical History: No Reported History Daughter(s) Family Medical History: No Reported History Medications and Allergies Home Medications Medication Instructions Recorded Confirmed Type lisinopriL [Zestril] 20 mg PO DAILY 09/13/16 10/13/24 History Montelukast [Singulair] 10 mg PO DAILY PRN 10/30/19 10/13/24 History Albuterol Sulfate [Albuterol 2 puff INHALATION DIRECTED PRN 10/08/24 10/13/24 History Sulfate Hfa] Cyanocobalamin [Vitamin B-12 1,000 mcg SQ Q14D 10/08/24 10/13/24 History Injection] Ergocalciferol [Vitamin D2 (1250 1,250 mcg PO WEEKLY 10/08/24 10/08/24 History Mcg = 99782 Iu)] Sertraline HCl [Zoloft] 50 mg PO DAILY 10/08/24 10/13/24 History Unk Probiotic 1 tab PO DAILY 10/08/24 10/08/24 History [facility] Allergy Med 1 tab PO DAILY 10/08/24 10/13/24 History Allergies Allergy/AdvReac Type Severity Reaction Status Date / Time gluten Allergy stomach Verified 10/13/24 06:20 issues Exam Osteopathic Statement: *. No significant issues noted on an osteopathic structural exam other than those noted in the History and Physical/Consult. Vital Signs Temp Pulse Resp BP Pulse Ox 10/13/24 06:31 97.3 F L 83 16 126/80 98 Intake and Output 10/12/24 10/13/24 10/13/24 22:59 06:59 14:59 Other: Weight 121.1 kg Heart: Regular rate and rhythm Lungs: Clear to auscultation bilaterally Abdomen: Soft, nontender Extremities: Negative Homans sign Results Result Diagrams: 10/13/24 06:42 Abnormal Lab Results - Last 24 Hours (Table) 10/13/24 Range/Units 06:42 Chloride 108 H (98-107) mmol/L Assessment and Plan (1) Ovarian cyst Current Visit: Yes Status: Acute Code(s): N83.209 - UNSPECIFIED OVARIAN CYST, UNSPECIFIED SIDE SNOMED Code(s): 55877943 Plan: 1. Laparoscopic removal of left ovarian cyst using da Patricia and possible left oophorectomy
[2024-10-13] MEDS ORDERED: LIDOCAINE 1% INJ 10MG/ML (20 ML MDV) ONE (07:33)
[2024-10-13] MEDS ORDERED: PROPOFOL 10 MG/ML 20 ML VIAL IV ONE (07:33)
[2024-10-13] MEDS ORDERED: MIDAZOLAM 2 MG/2 ML VIAL ONE (07:33)
[2024-10-13] MEDS ORDERED: SUCCINYLCHOLINE CHLORIDE 200 MG/10 ML VIAL IV ONE (07:33)
[2024-10-13] MEDS ORDERED: ROCURONIUM 10 MG/ML (5 ML VIAL) IV ONE (07:33)
[2024-10-13] MEDS ORDERED: GLYCOPYRROLATE 0.2 MG/ML 2 ML VIAL ONE (07:33)
[2024-10-13] MEDS ORDERED: NEOSTIGMINE 1 MG/ML 10 ML VIAL ONE (07:33)
[2024-10-13] MEDS ORDERED: fentaNYL (PF) 50 MCG/ML 2 ML AMP ONE (07:33)
[2024-10-13] MEDS ORDERED: KETOROLAC 15 MG/ML 1 ML VIAL ONE (07:33)
[2024-10-13] MEDS ORDERED: PHENYLEPHRINE 10 MG/ML VIAL ONE (07:33)
[2024-10-13] MEDS: BUPIVACAINE (PF) 0.25% 30 ML VIAL SQ ONE ×2 (08:00→08:47)
[2024-10-13] MEDS: LACTATED RINGERS 1,000 ML IV ONE (08:48)
--- NOTE | 2024-10-13 09:01 | P.OP ---
Date of Procedure: 10/13/24 Preoperative Diagnosis: 1. left ovarian cyst Postoperative Diagnosis: left ovarian cyst, extensive omental and bowel adhesions Procedure(s) Performed: laparoscopic lysis of adhesions, left ovarian cystectomy using da yesy Surgeon: Edilma Shrestha Estimated Blood Loss (ml): 5 IV fluids (ml): 700 Urine output (ml): 200 Pathology: other (part of left ovary and cyst) Condition: stable Disposition: PACU Operative Findings: extensive adhesions of the omentum and bowel to the pelvis and anterior abdominal wall Description of Procedure: Patient taken the operating room where general anesthesia was obtained without difficulty. She is prepped and draped in normal sterile fashion dorsal lithotomy position, legs placed in the [place] stirrups. Weighted speculum placed in the vagina and the anterior lip the cervix was grasped with single-tooth tenaculum. The uterus sounded to 8 cm and the cervix diameter was 3.5 cm. The appropriate manipulator tip and ring were placed on the Magdalene manipulator. The Magdalene manipulator was then placed in the uterus. Cameron catheter was also placed. Attention was then turned to the abdomen and gloves were changed. A 5 mm supraumbilical incision was made the scalpel and a 5 mm optical trocar was placed under direct visualization. 10 cm to the right of this and 2 cm down a 5 mm incision was made and 8 mm da Yesy port was placed under direct visualization. Same measurements on the opposite side of the patient's abdomen, the 5 mm incision was made and 8 mm da Yesy port was placed under direct visualization. In the left upper quadrant a 10 mm incision was made and a 10 mm optical trocar was placed under direct visualization. The 5 mm optical trocar was then replaced with the 8 mm da Yesy camera port. there were adhesions near the camera port there were taken down using the Anuradha grasper and the blunt manner.The robot was docked on patient's right side. The camera was introduced and then the monopolar curved scissor and maryland bipolar were placed under direct visualization. I broke scrub and went to the physician console. extensive adhesions were noted and the anterior abdominal wall to the bowel and along the posterior cul-de-sac and vaginal cuff. These were taken down using the monopolar curved scissors. Found the right adnexa first along the pelvic brim careful to remove any omental adhesions and the ovary was visualized a small cyst on the right ovary was pierced and serous fluid removed. Attention turned to the left side the left pelvic brim was followed and adhesions were removed there was a large cystic mass that was pierced and serous fluid was drained and removed with the suction. 2 more cysts on this ovary were punctured and fluid was removed. The piece of the ovary and cyst were removed using the monopolar curved scissors and taken out the cancer genetics assistant port. Hemostasis was assured. The Surgicel powder was placed along the vaginal cuff the posterior cul-de-sac and the raw edges of the omental adhesions. All instruments were r emoved from the abdomen and the robot was undocked. I scrubbed back in to perform a cystoscopy. There were jets from both ureteral orifices. The abdominal incisions were closed with 4-0 Vicryl in a subcuticular fashion. Patient tolerated the procedure well, sponge and instrument counts correct 2 and she was taken to recovery room in stable condition condition
[2024-10-13 09:11] VITALS: TEMP 96.8
[2024-10-13 09:38] VITALS: RESP 16
[2024-10-13] MEDS: fentaNYL (PF) 50 MCG/ML 2 ML AMP IVP PRN (10:10)
[2024-10-13] MEDS: Acetaminophen-Codeine 300-30mg TAB PO STA (10:50)
[2024-10-13 11:55] VITALS: BP 128/85; PULSE 74
== END 2024-10-13 12:27 | disposition home or self-care (01) ==
LOC: OR 05:59
PROVIDERS: ATTEND Obstetrics & Gynecology
DX: N83.202 Unspecified ovarian cyst, left side (principal); K66.0 Peritoneal adhesions (postprocedural) (postinfection); K21.9 Gastro-esophageal reflux disease without esophagitis; I10 Essential (primary) hypertension; F41.9 Anxiety disorder, unspecified; Z90.710 Acquired absence of both cervix and uterus; Z90.49 Acquired absence of other specified parts of digestive tract; Z90.721 Acquired absence of ovaries, unilateral; Z83.3 Family history of diabetes mellitus; Z82.49 Family history of ischemic heart disease and other diseases of the circulatory system; Z79.899 Other long term (current) drug therapy
CPT/HCPCS: 80048; 58662; J2250; J0330; J1100; J2710; J2405; J2003; J3010; J1885; J2704; J2371; J0665; J1596; 88307

== ENCOUNTER → 2024-12-18 | Outpatient (CLI) | payer BC ==
--- NOTE | 2024-12-19 07:48 | MM ---
Reason for Exam: Screening (asymptomatic). Last mammogram was performed 3 year(s) and 4 month(s) ago. Patient History: Menarche at age 14. First Full-Term at age 26. Hysterectomy at age 34. Risk Values: Alicia 5 year model risk: 0.8%. NCI Lifetime model risk: 10.8%. Prior Study Comparison: 11/23/2016 Bilateral Screening Mammogram, [facility]. 08/23/2021 Bilateral Screening Mammogram, [facility]. 09/02/2021 Left Diagnostic Mammogram, [facility]. Tissue Density: The breasts are heterogeneously dense, which may obscure small masses. Findings: Analyzed By CAD. There is no suspicious group of microcalcifications or new suspicious mass in either breast. Overall Assessment: Negative, BI-RAD 1 Management: Screening Mammogram of both breasts in 1 year. Patient should continue monthly self-breast exams. A clinical breast exam by your physician is recommended on an annual basis. This exam should not preclude additional follow-up of suspicious palpable abnormalities. Note on Alicia scores and lifetime risk: 1. A Alicia score greater than 3% is considered moderate risk. If this is the case, consider specialist referral to assess eligibility for a risk reducing agent. 2. If overall lifetime risk for the development of breast cancer is 20% or higher, the patient may qualify for future screening with alternating mammogram and breast MRI. [facility], , 12/19/2024 7:44 AM. Electronically signed and approved by: Megha Sahu M.D. Radiologist
== END | disposition home or self-care (01) ==
LOC: RADMAMWWP 16:10
PROVIDERS: ATTEND Family Medicine
DX: Z12.31 Encounter for screening mammogram for malignant neoplasm of breast (principal); R92.333 Mammographic heterogeneous density, bilateral breasts
CPT/HCPCS: 77063; 77067